=== PATIENT | female | born 2000 | race Caucasian/White ===

== ENCOUNTER 2023-03-04 21:26 | Emergency (ER) | payer MEDICAID, SELFPAY ==
[2023-03-04 21:27] VITALS: BP 115/79; PULSE 104; RESP 18; TEMP 36.4; O2SAT 98
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
--- NOTE | 2023-03-04 22:28 | NUR.NOTE ---
Pt [speaking with provider [facility]
--- NOTE | 2023-03-04 22:37 | NUR.NOTE ---
Pt was provided with a sandwich and ravi loi pt was pleasant and respectful.
--- NOTE | 2023-03-04 22:59 | NUR.NOTE ---
Nurse in room to give nicotine patch, and Covid test.
[2023-03-04] MEDS: Nicotine 21 MG/24 HR PATCH TD (23:02)
[2023-03-04 23:05] LABS: Source Nasal/Nares
[2023-03-04] MEDS: Prazosin 1 MG CAP PO (23:05)
[2023-03-04 23:35] LABS: COVID-19 PCR Negative (Negative)
[2023-03-05] MEDS: busPIRone 15 MG TAB PO (09:14)
[2023-03-05] MEDS: Nicotine 14 MG/24 HR PATCH TD (09:14)
[2023-03-05] MEDS: buPROPion-XL 150 MG TABCR 300 MG PO (09:14)
[2023-03-05] MEDS: Emtricitabine/Tenofovir 200 mg/300 mg TAB 1 EACH PO (09:14)
--- NOTE | 2023-03-05 09:54 | ED.PROG_ITS ---
Date of service: 03/05/23 Time of Service: 07:30 Medical Decision Making I have received signout on this patient during downtime. I have seen and examined the patient. We have gotten her meds from her lock box and given them to the pharmacist. 9:55 AM the patient is complaining of tooth pain. 10 AM: I have seen and examined the patient. She does have some carious teeth in the left upper and left lower jaw but no evidence of buccal cellulitis, no obvious abscess. She is also complaining of nausea and is requesting Pepcid. She has never taken penicillin but I will write for Pepcid, 500 mg of penicillin at 1000 mg of acetaminophen and 600 mg of ibuprofen. Narrative 1447 PM. The [facility] has excepted the patient. I have spoken with Gabriela Mcgee nurse practitioner who has excepted the patient. I have notified her that we started the patient on penicillin for her tooth and advised that be continued. 1600 p.m. I notified the patient of the transfer. She requested a second p.o. Pepcid for nausea. Sign Out Sign Out Data: Sign Out Comment: Patient is medically cleared and voluntary for inpatient hospitalization. No active behavioral issues last shift. Home medications have been ordered with the exception of home dolutegravir, an antiretroviral medicine prescribed as an outpatient for the next approximately 2 weeks as part of her machine rebuilder EP regime. Last updated by Jay Jay Beth MD at 03/05/23 00:02 Discharge Plan Disposition Patient Disposition: Transfer-Acute Inpatient Care Specific Acute Inpt Facility: Other Condition: Good Discharge Details Clinical Impression: Depression with suicidal ideation, Auditory hallucinations, Visual hallucinations Primary Care Provider: Cynthia,Local ED Provider: Carey Boykin Home Meds and New Rx's Prescriptions: New albuterol sulfate 90 mcg/actuation HFA aerosol inhaler 2 puff IH QID PRN (Reason: shortness of breath or wheezing) Qty: 8 0RF Rx Instructions: Take 1 to 2 puffs every 4-6 hours as needed for shortness of breath, cough or wheezing No Action bupropion HCl 300 mg tablet extended release 24 hr 300 mg PO DAILY lurasidone 120 mg tablet 120 mg PO DAILY Rx Instructions: must administer with food (at least 350 calories) buspirone 15 mg tablet 15 mg PO BID metformin 500 mg tablet 500 mg PO BIDWMEAL Tivicay 50 mg tablet 50 mg PO DAILY prazosin 5 mg capsule 5 mg PO DAILY melatonin 10 mg capsule 10 mg PO HS PRN Discharge Data Discharge Physician: Carey Boykin
[2023-03-05] MEDS: Penicillin V POTASSIUM 500 MG TAB PO (10:32)
[2023-03-05] MEDS: Famotidine 20 MG TAB PO ×2 (10:32→16:14)
[2023-03-05] MEDS: Ibuprofen 600 MG TAB PO (10:32)
[2023-03-05] MEDS: Acetaminophen 500 MG TAB 1000 MG PO (10:32)
[2023-03-05 12:04] LABS: Abs Immature Grans 0.03 10^3/uL (0.0-0.06); Absolute Basophil Count 0.03 10^3/uL (0.0-0.2); Absolute Eosinophil Count 0.12 10^3/uL (0.0-0.7); Absolute Monocyte Count 0.68 10^3/uL (0.1-0.8); Absolute Neutrophil Count 6.31 10^3/uL (1.2-6.7); Basophils % 0.3; Eosinophils % 1.2; HCT 37.2 % (36.0-46.0); HGB 11.9 g/dL (11.2-15.7); Immature Grans % 0.3; Lymphocytes % 26.6; MCH 27.5 pg (27.0-33.0); MCV 86 fL (80-95); Neutrophils % 64.6; Platelet Count 403 10^3/uL (130-400); RBC 4.33 10^6/uL (3.93-5.22); RDW 14.1 % (11.7-14.6); WBC 9.77 10^3/uL (4.4-10.8)
[2023-03-05 12:29] LABS: ETHANOL BLOOD < 3.0 mg/dL (<10)
[2023-03-05 12:42] LABS: *AMPHETAMINES SCREEN URINE Negative (Negative); *BARBITURATES SCREEN URINE Negative (Negative); *BENZODIAZEPINES SCREEN URINE Negative (Negative); Cannabinoids THC Positive (Negative); Cocaine Screen,Urine Negative (Negative); METHADONE URINE SCREEN Negative (Negative); OPIATES URINE SCREEN Negative (Negative)
[2023-03-05 12:45] LABS: Tricyclic Antidepressants Negative (Negative)
[2023-03-05 12:49] LABS: Acetaminophen 12 ug/mL (10-30)
[2023-03-05 12:55] LABS: ALT 18 U/L (14-59); AST 12 U/L (15-37); Albumin 3.9 g/dL (3.4-5.0); Alkaline Phosphatase 75 U/L (46-116); Anion Gap 11.2 mmol/L (3-11); BUN 16 mg/dL (7-18); Bilirubin, Total 0.2 mg/dL (0.2-1.0); CO2 23.8 mmol/L (21.0-32.0); CREATININE 0.9 mg/dL (0.55-1.02); Calcium 10.3 mg/dL (8.5-10.1); Chloride 103 mmol/L (98-107); Estimated GFR 91.55 (mL/min/1.73m2); Glucose 91 mg/dL (74-106); Potassium 4.3 mmol/L (3.5-5.1); Sodium 138 mmol/L (136-145); Total Protein 8.2 g/dL (6.4-8.2)
--- NOTE | 2023-03-05 21:22 | MHPN_ITS ---
Date of service: 03/05/23 Time of Service: 10:25 Mental Health Emergency Note Release HS release signed:: Yes Reason for Visit The client is not known to [facility] prior to [facility] George's assessment of the client last evening. Per George's report the client presented to [facility] ED via family member due to suicidal ideations with plan to strangle self. The client is currently at [facility] ED on voluntary status. This radio script writer re-assesses the client via zoom. In the last 2 weeks has the pt presented for ES prior to today?: Yes, presented at ED at another facility Impression The client is a 22 y/o transgender female that uses the pronouns they/them and goes by the name of Brenda. The client is sitting up in the hospital bed dressed in proper paper hospital attire when this radio script writer arrives via zoom. The client is cooperative during this writers assessment. The client presents with symptoms most congruent to major depressive disorder, however also displays signs of borderline personality disorder as they appear to be a frequent user of emergency room or hospitalizations. When this radio script writer asks the client if they are currently endorsing suicidal ideations, they report yes with intent 10/10 if they were to leave the hospital and plan to strangle themselves. The client reports that they were just discharged from inpatient treatment at [facility] on Tuesday 02/27 but feels like they could benefit from another inpatient hospitalization for stabilization. Plan/Disposition Recommended Disposition: Hospitalization No. Plan: The client will remain at [facility] ED pending admission to an inpatient facility. The client's referral is currently under review at [place], however staff report that the clients Medicaid is not currently active. Per this writers conversation with healthcare business analyst Michell Eisenberg she will have community connections come over and work with the client. The client will be re-assessed by [facility] daily until placement is secured or acuity level decreases and they are able to be safety planned back to the community. Reports/communication Outcome discussed with: ED/Personnel (Verbal passover given to both ED provider and [facility] healthcare business analyst Michell Eisenberg.)
== END 2023-03-05 16:18 | disposition short-term general hospital (02) ==
PROVIDERS: Emergency Medicine; Registered Nurse Emergency; Emergency Provider Emergency Medicine Emergency Medical Services
DX: R44.1 Visual hallucinations (principal); R44.0 Auditory hallucinations; F32.A Depression, unspecified
CPT/HCPCS: 00123; 36415; 80053; 80307; 81025; 87635; 99285; 80320; 80329; 85025

== ENCOUNTER 2023-03-21 18:00 | Emergency (ER) | payer MEDICAID, SELFPAY ==
[2023-03-21 18:04] VITALS: BP 126/78; PULSE 105; RESP 20; TEMP 36.3; O2SAT 98
--- NOTE | 2023-03-21 18:15 | ED.GENADUL_ITS ---
Discharge Plan Discharge Details Chief Complaint: PsychEval Clinical Impression: Depression with suicidal ideation Primary Care Provider: Unknown,Unknown ED Provider: Jovon Joe Home Meds and New Rx's Prescriptions: No Action bupropion HCl 300 mg tablet extended release 24 hr 300 mg PO DAILY lurasidone 120 mg tablet 120 mg PO DAILY Rx Instructions: must administer with food (at least 350 calories) buspirone 15 mg tablet 15 mg PO TID metformin 500 mg tablet 500 mg PO BIDWMEAL Tivicay 50 mg tablet 50 mg PO DAILY prazosin 5 mg capsule 5 mg PO DAILY melatonin 10 mg capsule 10 mg PO HS PRN albuterol sulfate 90 mcg/actuation HFA aerosol inhaler 2 puff IH QID PRN (Reason: shortness of breath or wheezing) Qty: 8 0RF Rx Instructions: Take 1 to 2 puffs every 4-6 hours as needed for shortness of breath, cough or wheezing trazodone 150 mg tablet 150 mg PO QHS PRN Medical Decision Making This dictation utilizes sclxa-xt-diot dictation software and may contain unedited grammatical errors. 22 y/o F presents to ED today with a chief complaint of suicidal ideation, was seen here 03/05 for same complaint, had a 10-day admission at [place] with minor medication adjustment- states she was discharged while still actively suicidal from [facility]. States she would OD on all her pills and has made preparations by counting them. Onset and characteristics include chronic suicidality. Patients' medical history: Depression with SI, hallucination. Pertinent exam findings / vital signs include benign cardiopulmonary status, benign abdomen, neuro intact, polite & calm. Differential / pathologies of concern include suicidal ideation, depression, bipolar disorder, unlikely psychosis at this time. Diagnostic studies of: -CBC, CMP, TSH, UA, Upreg, UTox, ETOH, Salicylates, Tylenol Level -CBC benign -BMP benigg -TSH WNL -UA no abn -Upreg neg Interventions of: -Consult with tele-psych. ED Course: Human Services questions BPD, PHQ-9, state they will continue their OD plan, seeking voluntary admission. Would be involuntary until re-evaluation by Human Services if she attempted to leave. It is hope of human services that if risk factors change she may be able to have a safety plan to go home with a re- evaluation. Patient signed out to oncoming provider Dr. Arciniega at shift-change, see her progress note. Findings not consistent with suicide attempt, patient moderate risk will adjust as necessary per mental health evaluation, likely bed search for in-patient hospitalization- patient needs more resources in community. Disposition of Depression with Suicidal Ideation. Medical Records Medical records reviewed: Yes I reviewed the patient's medical records. Lab Data Labs: Laboratory Tests Range/Units 03/21/23 03/21/23 19:50 20:28 WBC (4.4-10.8) 10^3/uL 9.07 RBC (3.93-5.22) 10^6/uL 3.95 Hgb (11.2-15.7) g/dL 11.0 L Hct (36.0-46.0) % 34.3 L MCV (80-95) fL 87 MCH (27.0-33.0) pg 27.8 MCHC (32.0-36.0) % 32.1 RDW (11.7-14.6) % 14.6 Plt Count (130-400) 10^3/uL 333 MPV (8.0-11.0) fL 9.1 Immature Gran % 0.2 Neutrophils % 59.5 Lymphocytes % 30.4 Monocytes % 7.8 Eosinophils % 1.8 Basophils % 0.3 Nucleated RBC % (0.0-0.3) % 0.0 Absolute Neutrophils (1.2-6.7) 10^3/uL 5.39 Absolute Lymphocytes (1.2-3.4) 10^3/uL 2.76 Absolute Monocytes (0.1-0.8) 10^3/uL 0.71 Absolute Eosinophils (0.0-0.7) 10^3/uL 0.16 Absolute Basophils (0.0-0.2) 10^3/uL 0.03 Sodium (136-145) mmol/L 138 Potassium (3.5-5.1) mmol/L 3.5 Chloride (98-107) mmol/L 103 Carbon Dioxide (21.0-32.0) mmol/L 29.0 Anion Gap (3-11) mmol/L 6.0 BUN (7-18) mg/dL 20 H Creatinine (0.55-1.02) mg/dL 0.8 Est GFR (CKD-EPI 2020) (mL/min/1.73m2) 105.45 Glucose (74-106) mg/dL 118 H Calcium (8.5-10.1) mg/dL 9.7 TSH (0.36-3.74) uIU/mL 1.96 Urine Color (Yellow) Yellow Urine Clarity (Clear) Cloudy Urine pH (5-8) 5.5 Ur Specific [place] (1.005-1.025) >= 1.030 H Urine Protein (Negative) mg/dL Negative Urine Ketones (Negative) mg/dL Negative Urine Blood (Negative) Negative Urine Nitrite (Negative) Negative Urine Bilirubin (Negative) Negative Urine Urobilinogen (Up to 0.2) mg/dL 0.2 Ur Leukocyte Esterase (Negative) Negative Urine Glucose (Negative) mg/dL Negative Salicylates (<2.8) mg/dL 3.0 Urine Opiates Screen (Negative) Negative Urine Methadone Screen (Negative) Negative Acetaminophen (10-30) ug/mL < 2 Ur Barbiturates Screen (Negative) Negative Ur Tricyclics Screen (Negative) Negative Ur Amphetamines Screen (Negative) Negative U Benzodiazepines Scrn (Negative) Negative Urine Cocaine Screen (Negative) Negative Ur THC Screen (Negative) Positive A Ethyl Alcohol (<10) mg/dL < 3.0 HPI General Date/Time Provider Initiated Documentation: 03/21/23 18:14 . HPI Narrative: 22 year-old female, goes by Brenda presents to ED today by POV/ambulating with a chief complaint of suicidal ideations- states she will likely overdose on her pills, has started counting them and realized she has enough to do so with onset noted since 03/05- she was admitted to [facility] for 10 days, and states that they discharged her while she was still feeling actively suicidal, and has had these thoughts each day since discharge. Patient states they upped her trazodone and buspar but made no other arrangements. Patient has a psychiatrist and case packer, but no regular psychotherapy or counseling. Quality described as no medical complaints, no radiation to abdominal pain, chest pain, shortness of breath, fevers, nausea/vomiting. Severity is described as persistent and chronic thoughts of suicide. Palliating factors include medications but not improving. Provoking factors include nothing specific. Patient not anticoagulated. Related Data Home Medications Medication Instructions Recorded Confirmed bupropion HCl 300 mg 24 hr tablet, 300 mg PO DAILY 03/04/23 03/21/23 extended release buspirone 15 mg tablet 15 mg PO TID 03/04/23 03/21/23 dolutegravir 50 mg tablet (Tivicay) 50 mg PO DAILY 03/04/23 03/21/23 lurasidone 120 mg tablet 120 mg PO DAILY 03/04/23 03/21/23 melatonin 10 mg capsule 10 mg PO HS PRN 03/04/23 03/21/23 metformin 500 mg tablet 500 mg PO BIDWMEAL 03/04/23 03/21/23 prazosin 5 mg capsule 5 mg PO DAILY 03/04/23 03/21/23 albuterol sulfate 90 mcg/actuation 2 puff inhalation QID PRN 03/05/23 03/21/23 aerosol inhaler shortness of breath or wheezing #8 grams trazodone 150 mg tablet 150 mg PO QHS PRN 03/21/23 03/21/23 Previous Rx's Medication Instructions Recorded albuterol sulfate 90 mcg/actuation 2 puff inhalation QID PRN 03/05/23 aerosol inhaler shortness of breath or wheezing #8 grams Allergies Allergy/AdvReac Type Severity Reaction Status Date / Time No Known Allergies Allergy Unverified 03/04/23 21:35 General Stated Complaint: PsychEval AJIT: 2 Review of Systems All systems reviewed & are unremarkable except as noted in HPI and below PFSH All Active Problems (Updated 03/21/23 @ 21:43 by GITA Chen) Visual hallucinations (Acute) Auditory hallucinations (Acute) Depression with suicidal ideation (Acute) Social History Smoking/Tobacco Use Status: Current every day Tobacco Type: cigarettes and e- cigarettes Smoking risk assessment performed?: Yes Alcohol Intake: current Alcohol Intake frequency: a few times a month Drug use: Daily Substance use type: marijuana Housing: homeless Do you feel safe at home: Yes Do you feel safe in your relationship?: Yes Exam Narrative Exam Narrative: GENERAL APPEARANCE: Well-nourished, non-toxic, awake and alert, atraumatic, no acute distress. SKIN: Warm, pink, dry, intact, without rashes/lesions/ulcerations. HEAD: Normocephalic, atraumatic, normal hair distribution for gender/age. EYES: Pupils PERRLA, EOMs intact without nystagmus, normal conjunctiva, no exudates on lids/lashes. ENT: Nares patent, no circumoral cyanosis, no facial swelling NECK: Supple, trachea midline, painless cervical ROM. LUNGS/CHEST: Lungs CTA bilaterally- no rhonchi/rales/wheezes diffusely, non- labored respirations, normal A/P diameter, symmetrical expansion, no chest wall deformity HEART (CV/PV): Regular rate and rhythm without murmur, no peripheral edema, no JVD. ABDOMEN: Soft, non-distended, no guarding, no tenderness. MSK: Normal ROM, no swelling/deformity to bilateral UEs or LEs, moving all extremities without weakness, no cyanosis, spine midline without tenderness, normal curvature. NEURO: Mental Status AAOx4 - alert to person, place, time, events No facial droop, no forehead involvement. Motor: No focal weakness - strength 5/5 in bilateral UEs and LEs, proximal and distal, symmetric. Sensory: sensation intact to light touch globally. Gait normal: patient ambulated without ataxia into ED room. PSYCH: dysthymic, cooperative, pleasant, appropriate speech Course Vital Signs Vital signs: Vital Signs Temperature 36.3 C L 03/21/23 18:04 Pulse 105 H 03/21/23 18:04 Respiratory Rate 20 03/21/23 18:04 Blood Pressure 126/78 03/21/23 18:04 Pulse Oximetry 98 03/21/23 18:04 Temperature 36.3 C L 03/21/23 18:04 Temperature Source Oral 03/21/23 18:04 Pulse 105 H 03/21/23 18:04 Respiratory Rate 20 03/21/23 18:04 Respiratory Effort Normal, Non-Labored 03/21/23 18:12 Blood Pressure 126/78 03/21/23 18:04 Blood Pressure Position Sitting 03/21/23 18:04 Pulse Oximetry 98 03/21/23 18:04 Oxygen Delivery Method Room Air 03/21/23 18:04 Oxygen Flow Rate 0 03/21/23 18:04 Pain Level 0 03/21/23 18:04 Sign Out Sign Out Data: Sign Out Comment: Depression w SI, Voluntary until tries to leave, human svcs hopeful for safety plan tomorrow. Labs benign. calm demeanor Last updated by Jovon Joe PA at 03/21/23 22:47
--- NOTE | 2023-03-21 18:28 | NUR.NOTE ---
[place] [phone] [facility] [phone] [facility] [phone] [facility] [phone] Tanvi Bobby [phone] [facility] [phone] Nursing Note:
[2023-03-21 19:58] LABS: Abs Immature Grans 0.02 10^3/uL (0.0-0.06); Absolute Basophil Count 0.03 10^3/uL (0.0-0.2); Absolute Eosinophil Count 0.16 10^3/uL (0.0-0.7); Absolute Lymphocyte Count 2.76 10^3/uL (1.2-3.4); Absolute Monocyte Count 0.71 10^3/uL (0.1-0.8); Absolute Neutrophil Count 5.39 10^3/uL (1.2-6.7); Basophils % 0.3; Eosinophils % 1.8; HCT 34.3 % (36.0-46.0); Immature Grans % 0.2; Lymphocytes % 30.4; MCH 27.8 pg (27.0-33.0); MCHC 32.1 % (32.0-36.0); MCV 87 fL (80-95); MPV 9.1 fL (8.0-11.0); Monocytes % 7.8; Neutrophils % 59.5; Platelet Count 333 10^3/uL (130-400); RBC 3.95 10^6/uL (3.93-5.22); RDW 14.6 % (11.7-14.6); RDW-SD 45.4 fL; WBC 9.07 10^3/uL (4.4-10.8)
[2023-03-21 20:15] LABS: Acetaminophen < 2 ug/mL (10-30)
[2023-03-21 20:23] LABS: BUN 20 mg/dL (7-18); CREATININE 0.8 mg/dL (0.55-1.02); Calcium 9.7 mg/dL (8.5-10.1); Chloride 103 mmol/L (98-107); Estimated GFR 105.45 (mL/min/1.73m2); Glucose 118 mg/dL (74-106); Potassium 3.5 mmol/L (3.5-5.1); Sodium 138 mmol/L (136-145); TSH (W/Ref FT4) 1.96 uIU/mL (0.36-3.74)
[2023-03-21 20:24] LABS: ETHANOL BLOOD < 3.0 mg/dL (<10)
[2023-03-21 20:33] LABS: Bilirubin Negative (Negative); Blood Negative (Negative); Clarity Cloudy (Clear); Glucose Negative (Negative); Ketones Negative (Negative); Leukocyte Esterase Negative (Negative); Nitrite Negative (Negative); Specific Gravity >= 1.030 (1.005-1.025); Urobilinogen 0.2 mg/dL (Up to 0.2); pH 5.5 (5-8)
[2023-03-21 20:44] LABS: *AMPHETAMINES SCREEN URINE Negative (Negative); *BARBITURATES SCREEN URINE Negative (Negative); *BENZODIAZEPINES SCREEN URINE Negative (Negative); Cannabinoids THC Positive (Negative); Cocaine Screen,Urine Negative (Negative); METHADONE URINE SCREEN Negative (Negative); OPIATES URINE SCREEN Negative (Negative); Tricyclic Antidepressants Negative (Negative)
[2023-03-22] MEDS: diphenhydrAMINE 25 MG CAP 50 MG PO (04:02)
[2023-03-22] MEDS: Famotidine 20 MG TAB PO (04:02)
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
--- NOTE | 2023-03-22 07:15 | ED.PROG_ITS ---
Date of service: 03/22/23 Time of Service: 07:15 Medical Decision Making I received signout on this 22-year-old patient in the emergency department voluntarily. Patient was discharged following a 10 day stay at [facility] recently. Home medications have been ordered. Patient is medically cleared. No active behavioral issues last shift. We will update documentation as clinically warranted and sign patient out to oncoming evening provider. 8:42 AM I change the patient's lurasidone 120 mg nightly per patient request. 2:32 PM I spoke with Dr. Joe from the [facility] who graciously agreed to accept the patient for hospitalization. I reordered the patient's gabapentin 100 mg. 4:15 PM I signed transfer paperwork to have this patient transferred to the [facility]. Sign Out Sign Out Data: Sign Out Comment: Depression w SI, Voluntary until tries to leave, human svcs hopeful for safety plan tomorrow. Labs benign. calm demeanor Last updated by Jovon Joe PA at 03/21/23 22:47 Sign Out Comment: Depression with SI, plan to take pills for OD. Recent 10 day inpatient admission. Voluntary admission, pending placement or safety plan. requested stomach medicine and something to help her sleep overnight but has otherwise been calm. Provided an iPad for watching TV. Does have DM, on metformin. Diabetic diet ordered, with accuchecks. Home meds ordered. Last updated by Jamaal Arciniega MD at 03/22/23 06:41 Discharge Plan Discharge Details Chief Complaint: PsychEval Clinical Impression: Depression with suicidal ideation Primary Care Provider: Unknown,Unknown ED Provider: Jay Jay Beth Home Meds and New Rx's Prescriptions: No Action bupropion HCl 300 mg tablet extended release 24 hr 300 mg PO DAILY lurasidone 120 mg tablet 120 mg PO DAILY Rx Instructions: must administer with food (at least 350 calories) buspirone 15 mg tablet 15 mg PO TID metformin 500 mg tablet 500 mg PO BIDWMEAL Tivicay 50 mg tablet 50 mg PO DAILY prazosin 5 mg capsule 5 mg PO DAILY melatonin 10 mg capsule 10 mg PO HS PRN albuterol sulfate 90 mcg/actuation HFA aerosol inhaler 2 puff IH QID PRN (Reason: shortness of breath or wheezing) Qty: 8 0RF Rx Instructions: Take 1 to 2 puffs every 4-6 hours as needed for shortness of breath, cough or wheezing trazodone 150 mg tablet 150 mg PO QHS PRN
[2023-03-22 07:17] VITALS: BP 90/56; PULSE 70; RESP 14; TEMP 36.3; O2SAT 97
[2023-03-22] MEDS: busPIRone 15 MG TAB PO ×2 (08:29→14:47)
[2023-03-22] MEDS: buPROPion-XL 150 MG TABCR 300 MG PO (08:29)
[2023-03-22] MEDS: Gabapentin 100 MG CAP PO ×2 (08:30→15:06)
[2023-03-22] MEDS: metFORMIN 500 MG TAB PO (08:31)
--- NOTE | 2023-03-22 10:05 | CMSP_ITS ---
Date of service: 03/22/23 Time of Service: 10:05 Care Management Safety Plan Status Status: Voluntary Reason for Wait Reason for Wait: Inpatient Admission Safety Plan Safety Plan: Angela presented to the ED overnight with suicidal ideation, with a plan to overdose on medications. Per chart review, Angela was [place] [facility] [place], presented at [facility] ED on 03/05/23, was then placed at [place], and was discharged after 10 days, approx 03/15/23. Now presenting in ED after approximately one week post discharge from inpatient hospitalization. Also of no te, pt is from [place], [place]; has family that lives in [facility]. Pt was visiting family when they experienced SI, family brought them to the ED. Angela was screened by DOC Katz today, who stated that they meet criteria for inpatient psychiatric hospitalization, as they endorse 9/10 SI. Referrals have been sent to all hospitals in [place], pending review. Angela will remain at [facility] awaiting voluntary psychiatric stabilization. VOLUNTARY FOR INPATIENT PSYCHIATRIC STABILIZATION.? Patient is appropriate in all interactions since arriving at [facility]; Pt has demonstrated appropriate coping and communication skills, has articulated his or her needs and concerns and is fully engaged during staff interactions. Safety plan has been established with patient, and care team, to adhere to patient goals, identify restrictions based on behavioral status, address nutrition, and determine allowed personal belongings, tools for hygiene and personal care. Determine level of activity including ambulation, level of supervision, visitors, and determine privileges based on behaviors and level of engagement by pt. SAFETY PLAN: 1. Will remain on suicide precautions, in paper clothes 2. Will remain in room under direct supervision of one-on-one staff at all times provided by [employer]; ES, SENIOR [employer]ACLE DATABASE ADMINISTRATOR resource coordinator. 3. May have paper cups, plates, finger foods as well as a cardboard spoon with which to eat meals. 4. Follow [facility] Management of the Admitted Behavioral Health Patient policy. 5. Comfort bath system, shower permitted with escort at RN discretion. 6. Personal belongings- no cell phone; soft items permitted at RN discretion. 7. Visitors-Angela's mother is permitted to visit, at RN discretion. 8. Activities: soft cart items approved per RN discretion. 9.? Bathroom privileges without limitations. 10. Phone: incoming/outgoing calls limited to [facility] cordless phone at RN discretion. Due to VOLUNTARY status, if patient wishes to leave [facility], staff will contact [facility] Crisis Screener ([phone]) and On-Call Moving Picture Producer ([phone]) as soon as possible. In the event of elopement, notify [facility] Police ([phone]). Patient is currently voluntarily at [facility] and seeking inpatient admission when a bed becomes available. [facility] Frontline Digital Music Instructor will continue seeking placement. Please contact the Billing Rep Moving Picture Producer ([phone]) and [facility] Digital Music Instructor ([phone]) for any needed changes in the Safety Plan. Safety plan has been provided to interdepartmental care team.
[2023-03-22 15:06] VITALS: BP 120/83; PULSE 84; RESP 14; TEMP 36.6; O2SAT 100
--- NOTE | 2023-03-23 02:25 | PDOC.MHPN2 ---
Date of service: 03/22/23 Time of Service: 11:25 Mental Health Emergency Note Release [facility] release signed:: Yes Reason for Visit In the last 2 weeks has the pt presented for ES prior to today?: Yes, presented at [facility] ED Safety Risk/Harm to Self or Others Current Ideation to Harm Self or Others: Yes to self. Intent: yes, has intent. Plan: yes,has a plan. History of suicide attempt: yes,history of suicide attempt reported. Details of previous suicide attempt: Client reported to many to remember Asssessment/Mental Status Appearance: Disheveled Attitude: Cooperative Behavior: Unremarkable Speech: Normal Affect: Normal Mood: Depressed Thought process: Unremarkable Hallucinations: No evidence Delusions: No evidence Attention: Unremarkable Perception: Not impaired Orientation: Fully orientated Memory: Intact Insight: Fair Judgement: Fair Neurovegetative Symptoms Sleep: No change Appetitie: No change Interests: No change Energy: No change Libido: Not applicable Impression Client was seen via zoom while that are at [facility] awaiting placement at an inpatient facility to seek further mental health treatment. Client reported that they are a 9/10 with intent and a plan to by suicide. Client reported not being able to sleep the pervious night after waking up at three am, but did eat breakfast. Client client reported that their mood was depressed and that they were feeling suicidal ideations during the assessment. Plan/Disposition Recommended Disposition: Hospitalization facilities contacted. Facilities contacted if Applicable [facility] Accepted, Accepted/transfer pending. Information Sent to [facility]: Referral Reports/communication Outcome discussed with: ED/Personnel
== END 2023-03-22 16:34 ==
PROVIDERS: Physician Assistant; Emergency Provider Emergency Medicine
DX: R45.851 Suicidal ideations (principal); F32.A Depression, unspecified; F17.210 Nicotine dependence, cigarettes, uncomplicated
CPT/HCPCS: 00123; 80048; 80307; 82962; 99285; 80320; 80329; 81003; 84443; 85025